=== PATIENT | female | born 1995 | race American Indian/Alaskan Native ===

== ENCOUNTER 2022-01-01 19:48 | Emergency (ER) | payer SELFPAY ==
[2022-01-01 20:55] VITALS: BP 119/82
== END 2022-01-01 22:10 | disposition left against medical advice (07) ==
LOC: ED 19:48
DX: F10.129 Alcohol abuse with intoxication, unspecified (principal); Z53.21 Procedure and treatment not carried out due to patient leaving prior to being seen by health care provider